=== PATIENT | male | born 1945 | race Caucasian/White ===

== ENCOUNTER 2017-01-23 02:48 | Emergency (ER) | payer OTHER ==
[2017-01-23] MEDS ORDERED: KETOROLAC 30 MG/ML VIAL ONE (03:14)
[2017-01-23] MEDS ORDERED: KETOROLAC 60 MG/2 ML VIAL IVP STA (03:17)
[2017-01-23] MEDS ORDERED: SODIUM CHLORIDE 0.9% 500 ML IV STA (03:20)
[2017-01-23] MEDS ORDERED: HYDROcod/ACET 5/325 Prepack 6 PO STA (04:47)
[2017-01-23] MEDS ORDERED: TAMSULOSIN 0.4 MG CAPSULE PO STA (04:49)
[2017-01-23] MEDS ORDERED: HYDROcod/ACET 5/325 Prepack 6 PO ONE (04:57)
[2017-01-23] MEDS ORDERED: TAMSULOSIN 0.4 MG CAPSULE ONE (04:59)
== END 2017-01-23 05:02 | disposition home or self-care (01) ==
DX: N13.2 Hydronephrosis with renal and ureteral calculous obstruction (principal); Z87.442 Personal history of urinary calculi
CPT/HCPCS: 36415; 74176; 80053; 83690; 85025; 96374; 99284; A9270

== ENCOUNTER 2017-02-05 08:59 | Outpatient (CLI) | payer OTHER | END 2017-02-05 09:00 | disposition home or self-care (01) | DX: N20.2 Calculus of kidney with calculus of ureter (principal) ==

== ENCOUNTER 2018-12-08 16:28 | Emergency (ER) | payer OTHER ==
[2018-12-08 16:57] LABS: BASOPHILS # (AUTO) 0.1 10^3/uL (0.0-0.1); BASOPHILS % (AUTO) 1.3 %; EOSINOPHILS # (AUTO) 0.3 10^3/uL (0.0-0.7); EOSINOPHILS % (AUTO) 5.9 %; HGB - HEMOGLOBIN 14.7 g/dL (14.0-18.0); LYMPHOCYTES # (AUTO) 1.1 10^3/uL (1.5-3.5); LYMPHOCYTES % (AUTO) 21.7 %; MEAN CORPUSCULAR HEMOGLOBIN 32.6 pg (27.0-31.0); MEAN CORPUSCULAR HGB CONC 34.3 g/dL (32.0-36.0); MEAN CORPUSCULAR VOLUME 95.2 fL (80.0-94.0); MEAN PLATELET VOLUME 8.1 fL (7.4-11.4); MONOCYTES # (AUTO) 0.3 10^3/uL (0.0-1.0); MONOCYTES % (AUTO) 7.1 %; NEUTROPHILS # (AUTO) 3.1 10^3/uL (1.5-6.6); PLT - PLATELET COUNT 237 10^3/uL (130-450); RED BLOOD COUNT 4.52 10^6/uL (4.70-6.10); RED CELL DISTRIBUTION WIDTH 13.4 % (12.0-15.0); WHITE BLOOD COUNT 4.9 x10^3/uL (4.8-10.8)
[2018-12-08 17:06] LABS: ALBUMIN 4.2 g/dL (3.2-5.5); ALBUMIN/GLOBULIN RATIO 1.3 (1.0-2.2); BILIRUBIN,TOTAL 0.7 mg/dL (0.2-1.0); CALCIUM 8.7 mg/dL (8.5-10.3); CREATININE 0.7 mg/dL (0.6-1.2); TOTAL PROTEIN 7.4 g/dL (6.7-8.2)
--- NOTE | 2018-12-08 17:06 | ED Physician Documentation ---
PD HPI ABD PAIN - Stated complaint Stated Complaint: ABD PX - Chief complaint Chief Complaint: Abd Pain - History obtained from History obtained from: Patient - History of Present Illness Timing - onset: Other (3 days of right-sided nonradiating abdominal pain that is waxing and waning. It does not seem to be associated with eating. Not associated with fevers, chills, nausea, or vomiting. He has a history of laparoscopic right inguinal hernia repair, he still has his appendix and his gallbladder.) Review of Systems Ten Systems: 10 systems reviewed and negative Constitutional: denies: Fever, Chills Cardiac: denies: Chest pain / pressure, Palpitations Respiratory: denies: Dyspnea, Cough GI: reports: Abdominal Pain. denies: Nausea, Vomiting, Constipation, Diarrhea PD PAST MEDICAL HISTORY - Past Medical History Cardiovascular: None Respiratory: None Endocrine/Autoimmune: None GI: None : Kidney stones HEENT: None Psych: None Musculoskeletal: None Derm: Other - Past Surgical History Past Surgical History: Yes - Present Medications Home Medications: Ambulatory Orders Medication Instructions Recorded Confirmed No Known Home Medications 12/08/18 12/08/18 - Allergies Allergies/Adverse Reactions: Allergies Allergy/AdvReac Type Severity Reaction Status Date / Time No Known Drug Allergies Allergy Verified 12/08/18 16:37 - Social History Does the pt smoke?: No Smoking Status: Never smoker Does the pt drink ETOH?: Yes Does the pt have substance abuse?: No - Immunizations Immunizations are current?: Yes - POLST Patient has POLST: No PD ED PE NORMAL - Vitals Vital signs reviewed: Yes - General General: Alert and oriented X 3, No acute distress - HEENT HEENT: PERRL, EOMI - Neck Neck: Supple, no meningeal sign, No bony TTP - Cardiac Cardiac: RRR, No murmur - Respiratory Respiratory: No respiratory distress, Clear bilaterally - Abdomen Abdomen: Normal bowel sounds, Soft, Other (Tender to the right mid abdomen, below the gallbladder and above the appendix. There is some fullness in the right inguinal area but no tenderness there.) - Back Back: No CVA TTP, No spinal TTP - Derm Derm: Normal color, Warm and dry - Extremities Extremities: No edema, No calf tenderness / cord - Neuro Neuro: Alert and oriented X 3, Normal speech Results - Vitals Vitals: Vital Signs - 24 hr 12/08/18 16:34 Temperature 36.5 C Heart Rate 70 Respiratory 20 Rate Blood Pressure 152/86 H O2 Saturation 100 Oxygen O2 Source Room air - Labs Labs: Laboratory Tests 12/08/18 12/08/18 12/08/18 16:48 16:48 17:05 WBC 4.9 RBC 4.52 L Hgb 14.7 Hct 43.0 MCV 95.2 H MCH 32.6 H MCHC 34.3 RDW 13.4 Plt Count 237 MPV 8.1 Neut # (Auto) 3.1 Lymph # (Auto) 1.1 L [place] # (Auto) 0.3 Eos # (Auto) 0.3 Baso # (Auto) 0.1 Absolute Nucleated RBC 0.00 Nucleated RBC % 0.1 Sodium 131 L Potassium 3.8 Chloride 98 L Carbon Dioxide 27 Anion Gap 6.0 BUN 16 Creatinine 0.7 Estimated GFR (MDRD) 111 Glucose 92 Calcium 8.7 Total Bilirubin 0.7 AST 22 ALT 19 Alkaline Phosphatase 76 Total Protein 7.4 Albumin 4.2 Globulin 3.2 Albumin/Globulin Ratio 1.3 Lipase 45 Urine Color YELLOW Urine Clarity CLEAR Urine pH 6.0 Ur Specific [place] 1.010 Urine Protein NEGATIVE Urine Glucose (UA) NEGATIVE Urine Ketones NEGATIVE Urine Occult Blood NEGATIVE Urine Nitrite NEGATIVE Urine Bilirubin NEGATIVE Urine Urobilinogen 0.2 (NORMAL) Ur Leukocyte Esterase NEGATIVE Ur Microscopic Review NOT INDICATED Urine Culture Comments NOT INDICATED - Rads (name of study) Ct A/P Radiology: EMP read contemporaneously (Right femoral hernia with fat and fluid; Generous stool load to my eye.) PD MEDICAL DECISION MAKING - ED course ED course: 73-year-old gentleman presents with right mid abdominal pain. His examination is mostly benign and does not fit a clear pattern of a surgical emergency. CT imaging demonstrates right femoral hernia with fat and liquid, and a general stool load to my eye. Departure - Departure Disposition: 01 Home, Self Care Clinical Impression: Femoral hernia of right side Abdominal pain Qualifiers: Abdominal location: right lower quadrant Qualified Code(s): R10.31 - Right lower quadrant pain Condition: Good Record reviewed to determine appropriate education?: Yes Instructions: ED Hernia Inguinal, ED Abdominal Pain Unkn Cause Male Follow-Up: Roberto Art MD [Provider Admit Priv/Credential] - Comments: I would take a laxative of your choice and drink plenty of water but also follow-up with a surgeon given the recurrent hernia. Return for new or worsening symptoms. Your blood pressure was elevated today on check into the emergency department. This does not mean that you have hypertension, it is a common phenomenon to come to the emergency department and have elevated blood pressure. I recommend that you see your primary care physician within the week to have it rechecked when you are feeling better.
[2018-12-08 17:17] LABS: BILIRUBIN,URINE NEGATIVE (NEGATIVE); GLUCOSE, URINE (UA) NEGATIVE (NEGATIVE); KETONES,URINE (UA) NEGATIVE (NEGATIVE); LEUKOCYTE ESTERASE, URINE NEGATIVE (NEGATIVE); NITRITE,URINE NEGATIVE (NEGATIVE); OCCULT BLOOD,URINE NEGATIVE (NEGATIVE); PROTEIN,URINE NEGATIVE (NEGATIVE); UROBILINOGEN,URINE 0.2 (NORMAL) E.U./dL (NORMAL)
[2018-12-08 17:21] LABS: CLARITY,URINE CLEAR (CLEAR)
[2018-12-08] MEDS ORDERED: IOVERSOL 320 100 ML VIAL IVP ONE ×2 (17:27→17:41)
--- NOTE | 2018-12-08 18:11 | CT Report ---
Reason: IV only, R abd pain Procedure Date: 12/08/2018 Accession Number: [id number] / [id number] Procedure: CT - Abdomen/Pelvis W/ CPT Code: FULL RESULT: EXAM: CT ABDOMEN AND PELVIS EXAM DATE: 12/08/2018 05:40 PM. CLINICAL HISTORY: IV only, R abd pain. COMPARISONS: ABDOMEN/PELVIS W/O 01/23/2017 3:31 AM. TECHNIQUE: Routine helical CT imaging was performed through the abdomen and pelvis. IV contrast: OPTI 320 100mL. Enteric contrast: No. Reconstructions: Coronal and sagittal. In accordance with CT protocol optimization, one or more of the following dose reduction techniques were utilized for this exam: automated exposure control, adjustment of mA and/or KV based on patient size, or use of iterative reconstructive technique. FINDINGS: Lung Bases: Unremarkable. Liver: There are scattered cysts in the liver with the largest measuring 1.6 cm superiorly in the medial left lobe. Otherwise unremarkable. Gallbladder/Bile Ducts: Unremarkable. Spleen: Normal. Pancreas: Normal. Adrenal Glands: Normal. Kidneys: Right kidney is unremarkable. There is a 4.5 cm cyst posteriorly in the mid left kidney. There are 6 mm mid pole and 3 mm lower pole left renal calculi. No hydronephrosis or perinephric fat stranding. Peritoneal Cavity/Bowel: Unopacified stomach and small bowel are nondistended. Retrocecal appendix is normal. There is a small amount of formed stool in the colon. There is mild sigmoid colon diverticulosis. There is no significant pericolonic fat stranding. There is no lymphadenopathy, ascites, or pneumoperitoneum. Pelvic Organs: Bladder, prostate gland, and seminal vesicles are unremarkable. Vasculature: Punctate calcification in the abdominal aorta. Otherwise unremarkable. Bones: No significant abnormality. Other: There is an approximately 2.9 x 4.6 x 4.5 cm right femoral hernia containing fat and trapped fluid, slightly increased from before. IMPRESSION: 1. Approximately 2.0 x 4.6 x 4.5 cm right femoral hernia containing fat and trapped fluid, slightly increased from before. 2. No other findings are identified to explain the right-sided pain. 3. Nonobstructing left renal calculi, as before. RADIA
[2018-12-08 18:20] VITALS: BP 141/79
== END 2018-12-08 18:27 | disposition home or self-care (01) ==
LOC: ED 16:28
DX: K41.90 Unilateral femoral hernia, without obstruction or gangrene, not specified as recurrent (principal)
CPT/HCPCS: 36415; 74177; 80053; 81003; 83690; 85025; 99283; Q9967; 81001; 87086

== ENCOUNTER 2018-12-10 11:59 | Outpatient (CLI) | payer OTHER ==
--- NOTE | 2018-12-10 14:28 | ANESTHESIA ---
Pre-Anesthesia VS, & Labs - Diagnosis incarcerated inginal hernia - Procedure hernia repair, right Height 5 ft 11 in Body Mass Index 23.0 - NPO Other Home Medications and Allergies No Known Home Medications 12/08/18 Allergies/Adverse Reactions: Allergies Allergy/AdvReac Type Severity Reaction Status Date / Time No Known Drug Allergies Allergy Verified 12/10/18 12:32 Anes History & Medical History - Anesthetic History Anesthesia Complications: reports: No previous complications - Medical History Cardiovascular: reports: None Pulmonary: reports: None Gastrointestinal: reports: None Urinary: reports: Kidney stones Musculoskeletal: reports: None Endocrine/Autoimmune: reports: None Skin: reports: Other Smoking Status: Never smoker - Surgical History General: Other (inginal hernia repair) Exam General: Alert Dental: WNL Mallampati classification: III Respiratory: Lungs clear Cardiovascular: Regular rate, Normal S1, Normal S2 Mental/Cognitive Status: Alert/Oriented X3 Plan Anesthesia Type: General Consent for Procedure(s) Verified and Reviewed: Yes Code Status: Attempt Resuscitation ASA classification: 2-Mild systemic disease Is this case an emergency?: Yes
[2018-12-10] MEDS ORDERED: LACTATED RINGERS 1,000 ML IV ONE (15:08)
[2018-12-10] MEDS ORDERED: BUPIVACAINE 0.5% PF 30 ML VIAL SUBQ ONE ×2 (15:08→15:29)
[2018-12-10 16:33] VITALS: BP 136/88
== END 2018-12-10 12:00 | disposition critical access hospital (66) ==
LOC: EMS 11:59
PROVIDERS: ATTEND Surgery
DX: R10.31 Right lower quadrant pain (principal)
CPT/HCPCS: A0425; A0427; C1781; J7120

== ENCOUNTER 2018-12-10 12:25 | Day surgery (SDC) | payer OTHER ==
[2018-12-10] MEDS ORDERED: HYDROmorphone 1 MG/ML CARPUJECT IVP STA ×2 (12:42→13:19)
[2018-12-10] MEDS ORDERED: SODIUM CHLORIDE 0.9% 1,000 ML IV ONE (12:42)
--- NOTE | 2018-12-10 12:44 | ED Physician Documentation ---
PD HPI ABD PAIN - Stated complaint Stated Complaint: ABD PX - Chief complaint Chief Complaint: Abd Pain - History obtained from History obtained from: Patient - History of Present Illness Timing - onset: Today (He has a history of right inguinal hernia repair about 5 years ago. I had seen him a couple of days ago for abdominal pain and the hernia had recurred with just fluid and fat in the sac. He coughed hard around 10:30 AM this morning and now has severe pain in the right groin. Last solid intake 9am, last liquid 10am.) Review of Systems Ten Systems: 10 systems reviewed and negative Constitutional: reports: Reviewed and negative Throat: reports: Reviewed and negative Cardiac: reports: Reviewed and negative GI: reports: Abdominal Pain. denies: Nausea, Vomiting, Constipation, Diarrhea PD PAST MEDICAL HISTORY - Past Medical History Cardiovascular: None Respiratory: None Endocrine/Autoimmune: None GI: None : Kidney stones HEENT: None Psych: None Musculoskeletal: None Derm: Other - Past Surgical History Past Surgical History: Yes - Present Medications Home Medications: Ambulatory Orders Medication Instructions Recorded Confirmed No Known Home Medications 12/08/18 12/10/18 - Allergies Allergies/Adverse Reactions: Allergies Allergy/AdvReac Type Severity Reaction Status Date / Time No Known Drug Allergies Allergy Verified 12/10/18 12:32 - Social History Does the pt smoke?: No Smoking Status: Never smoker Does the pt drink ETOH?: Yes Does the pt have substance abuse?: No - Family History Family history: reports: Non contributory - Immunizations Immunizations are current?: Yes - POLST Patient has POLST: No PD ED PE NORMAL - Vitals Vital signs reviewed: Yes - General General: Alert and oriented X 3, No acute distress - HEENT HEENT: PERRL, EOMI - Neck Neck: Supple, no meningeal sign, No bony TTP - Cardiac Cardiac: RRR, No murmur - Respiratory Respiratory: No respiratory distress, Clear bilaterally - Abdomen Abdomen: Other (Mild diffuse tenderness, there is a very firm hernia mass in the right inguinal area that is not reducible.) - Back Back: No CVA TTP, No spinal TTP - Derm Derm: Normal color, Warm and dry - Extremities Extremities: No edema, No calf tenderness / cord - Neuro Neuro: Alert and oriented X 3, Normal speech - Psych Psych: Normal mood, Normal affect Results - Vitals Vitals: Vital Signs - 24 hr 12/10/18 12:26 Temperature 36.6 C Heart Rate 60 Respiratory 15 Rate Blood Pressure 166/80 H O2 Saturation 100 Oxygen O2 Source Room air PD MEDICAL DECISION MAKING - ED course ED course: 73-year-old gentleman with recurrent right femoral hernia and now seems incarcerated on examination. Spoke with the on-call surgeon Dr. Lee who will take him to the operating room. Departure - Departure Disposition: ED Transfer to [facility] Clinical Impression: Right inguinal hernia, Incarcerated inguinal hernia Condition: Stable
[2018-12-10 13:19] LABS: BASOPHILS % (AUTO) 0.4 %; EOSINOPHILS # (AUTO) 0.1 10^3/uL (0.0-0.7); EOSINOPHILS % (AUTO) 1.2 %; HGB - HEMOGLOBIN 14.5 g/dL (14.0-18.0); LYMPHOCYTES # (AUTO) 0.6 10^3/uL (1.5-3.5); LYMPHOCYTES % (AUTO) 7.8 %; MEAN CORPUSCULAR HEMOGLOBIN 32.9 pg (27.0-31.0); MEAN CORPUSCULAR HGB CONC 35.3 g/dL (32.0-36.0); MEAN PLATELET VOLUME 8.1 fL (7.4-11.4); MONOCYTES # (AUTO) 0.3 10^3/uL (0.0-1.0); MONOCYTES % (AUTO) 4.3 %; NEUTROPHILS # (AUTO) 6.6 10^3/uL (1.5-6.6); NEUTROPHILS % (AUTO) 86.3 %; PLT - PLATELET COUNT 207 10^3/uL (130-450); RED BLOOD COUNT 4.42 10^6/uL (4.70-6.10); RED CELL DISTRIBUTION WIDTH 13.2 % (12.0-15.0); WHITE BLOOD COUNT 7.7 x10^3/uL (4.8-10.8)
[2018-12-10 13:31] LABS: INR 1.1 (0.8-1.2); PT - PROTHROMBIN TIME 12.1 secs (9.9-12.6)
[2018-12-10 13:32] LABS: ALBUMIN 3.9 g/dL (3.2-5.5); ALBUMIN/GLOBULIN RATIO 1.3 (1.0-2.2); BILIRUBIN,TOTAL 0.9 mg/dL (0.2-1.0); CALCIUM 8.4 mg/dL (8.5-10.3); CREATININE 0.7 mg/dL (0.6-1.2); TOTAL PROTEIN 6.9 g/dL (6.7-8.2)
[2018-12-10] MEDS ORDERED: BUPIVACAINE 0.5% PF 30 ML VIAL ONE (14:16)
[2018-12-10] MEDS ORDERED: ePHEDrine 50 MG/ML VIAL IVP ONE (15:00)
[2018-12-10] MEDS ORDERED: ROCURONIUM 50 MG/5 ML VIAL IVP ONE (15:00)
[2018-12-10] MEDS ORDERED: ACETAMINOPHEN 1,000 MG/100 ML 100 ML IV ONE (15:00)
[2018-12-10] MEDS ORDERED: ONDANSETRON 4 MG/2 ML VIAL IVP ONE (15:00)
[2018-12-10] MEDS ORDERED: PROPOFOL 200 MG/20 ML VIAL IVP ONE (15:00)
[2018-12-10] MEDS ORDERED: MIDAZOLAM 2 MG/2 ML VIAL IVP ONE (15:00)
[2018-12-10] MEDS ORDERED: DEXAMETHASONE 4 MG/ML VIAL IVP ONE (15:00)
[2018-12-10] MEDS ORDERED: fentaNYL 100 MCG/2 ML VIAL IVP ONE (15:00)
[2018-12-10] MEDS ORDERED: LIDOCAINE-MPF 2% 5 ML VIAL IM ONE (15:00)
[2018-12-10] MEDS ORDERED: SUCCINYLCHOLINE 200 MG/10 ML VIAL IVP ONE (15:00)
[2018-12-10] MEDS ORDERED: HYDROcod/ACETAM 5/325 MG TABLET PO PRN (15:41)
--- NOTE | 2018-12-10 15:42 | IMMEDIATE POSTOPERATIVE NOTE ---
Immediate Postoperative Note - Procedure Note Procedure Date: 12/10/18 Pre-Op Diagnosis: incarcerated right femoral hernia Procedure: open right femoral hernia repair with mesh Post-Op Diagnosis: same Primary Surgeon: raciel Anesthesia Type: General ET tube Complications: No complications Estimated Blood Loss (in cc): 5 Plan of Care: discharge
[2018-12-10] MEDS ORDERED: HYDROcod/ACETAM 5/325 MG TABLET ONE (17:51)
[2018-12-10] MEDS: HYDROcod/ACETAM 5/325 MG TABLET PO PRN (23:37)
--- NOTE | 2018-12-11 02:37 | OPERATIVE REPORT ---
DATE OF SERVICE: 12/10/2018 Physician: Rios Lee MD SURGEON: Rios Lee. PREOPERATIVE DIAGNOSIS: Incarcerated right femoral hernia. POSTOPERATIVE DIAGNOSIS: Incarcerated right femoral hernia. PROCEDURE PERFORMED: Open repair of right femoral hernia with mesh. INDICATIONS FOR PROCEDURE: The patient is a 71-year-old man who presented to the ER complaining of a painful bulge in the right groin. He stated he had an inguinal hernia repair done 5 years ago, and this new bulge had popped up recently. PROCEDURE IN DETAIL: The risks and benefits were explained to the patient, and he agreed to the procedure. He was taken to the operating room, given general anesthesia, and intubated. The right groin was prepped and draped. A timeout was performed, and everyone in the room agreed to the procedure. We began by re-incising his old right inguinal incision, carried this down to the hernia sac. The hernia sac was dissected circumferentially and found to be originating from femoral defect. The hernia sac was opened. The contents of the hernia sac was omentum, healthy, and viable. The omentum was reduced back into the peritoneal cavity. Most of the hernia sac was resected, and the remainder was closed with Vicryl and then reduced back through the hernia defect. A Prolene mesh hernia plug was then inserted into the defect. It was secured on 3 sides to surrounding fascia. On the lateral side, it was anchored to some overlying soft tissue. The stitches were placed as Prolene. The overlying [place] fascia was closed using Vicryl; 10 mL of Marcaine was infused in the incision, and the overlying skin was closed using 4-0 Monocryl with Dermabond. This terminated the procedure. The patient tolerated it well. He was extubated in the operating room and taken to recovery in stable condition. INSTRUMENT COUNTS: Correct. ESTIMATED BLOOD LOSS: 5 mL URINE OUTPUT: 250 mL SPECIMENS: None. COMPLICATIONS: None. Plans are for this patient to go home today. TD: 12/10/2018 15:45 MTDKaren
[2018-12-11 09:10] VITALS: BP 132/75
[2018-12-11] MEDS: HYDROcod/ACETAM 5/325 MG TABLET PO PRN (09:23)
== END 2018-12-11 09:26 | disposition home or self-care (01) ==
LOC: EDUNIT# → ED 12:25 → UNDOADMIN 13:00 → MS2 13:00 → SDS 15:39 → OBS 15:39 → MS2 16:50 → OBS 17:45 → SDS 12-11 09:26
PROVIDERS: ATTEND Surgery
PROC: 0YU70JZ Supplement Right Femoral Region with Synthetic Substitute, Open Approach (ICD-10-PCS; principal; 2018-12-10)
DX: K41.30 Unilateral femoral hernia, with obstruction, without gangrene, not specified as recurrent (principal)
CPT/HCPCS: 36415; 49553; 80053; 83690; 85025; 85610; 96361; 96374; 96376; 99283; 99285; A9270; J0131; J0330; J1170

== ENCOUNTER 2020-01-25 13:21 | Outpatient (CLI) | payer OTHER ==
--- NOTE | 2020-01-27 04:53 | Ultrasound Report ---
Reason: SCREENING FOR AAA Procedure Date: 01/25/2020 Accession Number: [id number] / [id number] Procedure: US - Aorta Screening CPT Code: Final Report FULL RESULT: EXAM: AORTIC DOPPLER ULTRASOUND EXAM DATE: 01/25/2020 02:08 PM. CLINICAL HISTORY: Screening for AAA. COMPARISON: None. TECHNIQUE: Real-time sonographic imaging of retroperitoneal vascular structures, including color-flow, Doppler flow and spectral analysis was performed by the client leader. Multiple inside account representative static images were saved for review. FINDINGS: Aorta: The abdominal aorta was adequately visualized. No evidence for abdominal aortic aneurysm. Aorta: Proximal: Sagittal AP 2.6 cm. Mid: Transverse 2.3 x 2.0 cm. Distal: Transverse 1.7 x 1.8 cm. Caliber: WNL: Yes. Plaque visualized: No. Iliacs: Right Iliac: Transverse 1.2 x 1.2 cm. Left Iliac: Transverse 1.2 x 1.2 cm. Iliac Vessels: The visualized proximal common iliac arteries are normal in caliber. Other: None. IMPRESSION: No abdominal aortic aneurysm. RADIA
== END 2020-01-25 13:22 | disposition home or self-care (01) ==
LOC: DI 13:21
PROVIDERS: ATTEND Family Medicine
DX: Z13.6 Encounter for screening for cardiovascular disorders (principal); Z87.891 Personal history of nicotine dependence
CPT/HCPCS: 76706

== ENCOUNTER 2022-04-08 08:53 | Outpatient (CLI) | payer OTHER ==
[2022-04-08 15:16] LABS: BASOPHILS # (AUTO) 0.1 10^3/uL (0.0-0.1); BASOPHILS % (AUTO) 1.5 %; EOSINOPHILS # (AUTO) 0.2 10^3/uL (0.0-0.7); EOSINOPHILS % (AUTO) 5.6 %; HCT - HEMATOCRIT 42.4 % (42.0-52.0); HGB - HEMOGLOBIN 14.5 g/dL (14.0-18.0); LYMPHOCYTES # (AUTO) 0.9 10^3/uL (1.5-3.5); LYMPHOCYTES % (AUTO) 23.5 %; MEAN CORPUSCULAR HEMOGLOBIN 32.4 pg (27.0-31.0); MEAN CORPUSCULAR HGB CONC 34.2 g/dL (32.0-36.0); MEAN CORPUSCULAR VOLUME 94.9 fL (80.0-94.0); MEAN PLATELET VOLUME 10.5 fL (7.4-11.4); MONOCYTES # (AUTO) 0.4 10^3/uL (0.0-1.0); MONOCYTES % (AUTO) 9.6 %; NEUTROPHILS # (AUTO) 2.4 10^3/uL (1.5-6.6); NEUTROPHILS % (AUTO) 59.5 %; PLT - PLATELET COUNT 242 10^3/uL (130-450); RED BLOOD COUNT 4.47 10^6/uL (4.70-6.10); RED CELL DISTRIBUTION WIDTH 13.3 % (12.0-15.0)
[2022-04-08 15:44] LABS: ALBUMIN 3.9 g/dL (3.2-5.5); ALBUMIN/GLOBULIN RATIO 1.4 (1.0-2.2); ALKALINE PHOSPHATASE 65 IU/L (42-121); ALT ALANINE AMINOTRANSFERASE 18 IU/L (10-60); AST ASPARTATE AMINOTRANSFERASE 25 IU/L (10-42); BUN - BLOOD UREA NITROGEN 17 mg/dL (6-20); CALCIUM 9.1 mg/dL (8.5-10.3); CARBON DIOXIDE - CO2 28 mmol/L (21-32); CHLORIDE 101 mmol/L (101-111); CHOL/HDL RATIO 3.2 (<5.0); CHOLESTEROL 182 mg/dL; CREATININE 0.9 mg/dL (0.6-1.2); GFR - MDRD 82 (>89); GLUCOSE 91 mg/dL (70-100); HDL CHOLESTEROL 57 mg/dL; LDL CHOLESTEROL,CALCULATED 110 mg/dL; LDL/HDL RATIO 1.9 (<3.6); POTASSIUM 4.3 mmol/L (3.5-5.0); SODIUM 135 mmol/L (135-145); TOTAL PROTEIN 6.6 g/dL (6.7-8.2); TRIGLYCERIDES 76 mg/dL; VLDL CHOLESTEROL 15 mg/dL
== END 2022-04-08 08:54 | disposition home or self-care (01) ==
LOC: LAB.S 08:53
PROVIDERS: ATTEND Physician Assistant
DX: N40.1 Benign prostatic hyperplasia with lower urinary tract symptoms (principal); R00.2 Palpitations; E78.5 Hyperlipidemia, unspecified; Z13.220 Encounter for screening for lipoid disorders; Z12.11 Encounter for screening for malignant neoplasm of colon
CPT/HCPCS: 36415; 80053; 80061; 83721; 84153; 84443; 85025

== ENCOUNTER 2022-04-21 08:29 | Outpatient (CLI) | payer OTHER ==
[2022-04-21 14:22] LABS: BASOPHILS # (AUTO) 0.1 10^3/uL (0.0-0.1); BASOPHILS % (AUTO) 1.3 %; EOSINOPHILS # (AUTO) 0.2 10^3/uL (0.0-0.7); EOSINOPHILS % (AUTO) 4.5 %; HCT - HEMATOCRIT 42.5 % (42.0-52.0); HGB - HEMOGLOBIN 14.5 g/dL (14.0-18.0); LYMPHOCYTES % (AUTO) 25.5 %; MEAN CORPUSCULAR HEMOGLOBIN 32.6 pg (27.0-31.0); MEAN CORPUSCULAR HGB CONC 34.1 g/dL (32.0-36.0); MEAN CORPUSCULAR VOLUME 95.5 fL (80.0-94.0); MEAN PLATELET VOLUME 11.1 fL (7.4-11.4); MONOCYTES # (AUTO) 0.4 10^3/uL (0.0-1.0); MONOCYTES % (AUTO) 10.8 %; NEUTROPHILS # (AUTO) 2.2 10^3/uL (1.5-6.6); NEUTROPHILS % (AUTO) 57.9 %; PLT - PLATELET COUNT 231 10^3/uL (130-450); RED BLOOD COUNT 4.45 10^6/uL (4.70-6.10); RED CELL DISTRIBUTION WIDTH 13.5 % (12.0-15.0); WHITE BLOOD COUNT 3.8 x10^3/uL (4.8-10.8)
[2022-04-21 15:23] LABS: FOLATE 13.19 ng/mL (5.90 - >24.8)
== END 2022-04-21 08:30 | disposition home or self-care (01) ==
LOC: LAB.S 08:29
PROVIDERS: ATTEND Physician Assistant
DX: D53.9 Nutritional anemia, unspecified (principal)
CPT/HCPCS: 36415; 82607; 82746; 85025